=== PATIENT | female | born 1990 | race American Indian/Alaskan Native ===

== ENCOUNTER → 2020-03-17 09:15 | Outpatient (CLI) | payer OTHER, SELFPAY ==
--- NOTE | 2020-03-17 | DI.US.S_ITS ---
PROCEDURE: US OB <= 14 WEEKS FETUS INDICATIONS: VAGINAL BLEEDING OUTSIDE/PRIOR DATING DATA: Last menstrual period (LMP): 02/05/20 LMP-based estimated date of delivery (SOCO): 11/11/20. First dating scan (date and location): 03/26/20. Estimated date of delivery (SOCO) from first dating scan: 11/09/20. TECHNIQUE: Real-time scanning was performed of the fetus and maternal pelvic organs, with image documentation. Endovaginal scanning was also performed to better visualize the fetus and maternal ovaries. COMPARISON: None. FINDINGS: Embryo: [place]-rump length 4 mm correlates with a gestational age of 6 weeks 1 day, +/-5 days Measurement variability in dating: +/- 4 weeks by LMP, +/- 7 days by mean sac diameter (use before 6 weeks gestation if crown-rump length not able to be measured), +/- 5 days by crown-rump length (up to 8 weeks 6 days gestation), +/- 7 days by crown-rump length (up to 13 weeks 6 days gestation). Note is made of a small presumed adjacent perigestational subchorionic bleed measuring 1.3 x 2.4 x 1.7 cm. Maternal organs: Ovaries normal considering gestational status . Limited images through the kidneys demonstrate no hydronephrosis. IMPRESSION: Single living intrauterine gestation with delivery date projected to be centered on 11/09/20, +/-5 days. Small subchorionic immediately adjacent perigestational bleed. Follow-up anatomic survey is recommended at approximately 20 weeks gestation. Dictated by: Harsha Diaz M.D. on 03/17/2020 at 11:52 Approved by: Harsha Diaz M.D. on 03/17/2020 at 11:54
== END ==
PROVIDERS: PCP Internal Medicine; Referring Provider Internal Medicine; Visit Provider Internal Medicine
DX: O20.9 Hemorrhage in early pregnancy, unspecified (principal); Z3A.01 Less than 8 weeks gestation of pregnancy
CPT/HCPCS: 76801; 76830

== ENCOUNTER → 2020-03-31 08:59 | Outpatient (CLI) | payer OTHER, SELFPAY ==
--- NOTE | 2020-03-31 | DI.US.S_ITS ---
PROCEDURE: US OB <= 14 WEEKS FETUS INDICATIONS: FOLLOW-UP SUBCHORIONIC BLEED OUTSIDE/PRIOR DATING DATA: Last menstrual period (LMP): 02/05/2020 LMP-based estimated date of delivery (SOCO): 11/11/2020. First dating scan (date and location): 03/17/2020. Estimated date of delivery (SOCO) from first dating scan: 11/09/2020. TECHNIQUE: Real-time scanning was performed of the fetus and maternal pelvic organs, with image documentation. Endovaginal scanning was also performed to better visualize the fetus and maternal ovaries. COMPARISON: [facility], OB <= 14 WEEKS FETUS, 03/17/2020, 9:39. FINDINGS: Embryo: [place]-rump length measures 4 mm corresponding to 6 weeks 1 day. Heart rate measures 119 beats per minute. Perigestational sac hematoma measuring 2.2 x 2.5 x 1.2 cm. Measurement variability in dating: +/- 4 weeks by LMP, +/- 7 days by mean sac diameter (use before 6 weeks gestation if crown-rump length not able to be measured), +/- 5 days by crown-rump length (up to 8 weeks 6 days gestation), +/- 7 days by crown-rump length (up to 13 weeks 6 days gestation). Maternal organs: Ovaries within normal limits, with 2.1 cm right corpus luteal cyst . IMPRESSION: 8 week 0 day single living IUP and perigestational sac bleed site. Dictated by: German COX Interpreted: Toby Bradford MD on 03/31/2020 at 10:17 Approved by: Toby Bradford M.D. on 03/31/2020 at 10:42
== END ==
PROVIDERS: PCP Internal Medicine; Referring Provider Family Medicine; Visit Provider Family Medicine
DX: O46.91 Antepartum hemorrhage, unspecified, first trimester (principal); Z3A.08 8 weeks gestation of pregnancy
CPT/HCPCS: 76801; 76817

== ENCOUNTER → 2020-04-09 08:01 | Outpatient (CLI) | payer OTHER, SELFPAY ==
--- NOTE | 2020-04-09 | DI.US.S_ITS ---
PROCEDURE: OB <= 14 WEEKS FETUS INDICATIONS: VAGINAL BLEEDING, LESS THAN 14 WEEKS OUTSIDE/PRIOR DATING DATA: Last menstrual period (LMP): 02/05/2020. LMP-based estimated date of delivery (SOCO): 11/11/2020. First dating scan (date and location): 03/17/2020. Estimated date of delivery (SOCO) from first dating scan: 11/09/2020. TECHNIQUE: Real-time scanning was performed of the fetus and maternal pelvic organs, with image documentation. COMPARISON: [facility], OB <= 14 WEEKS FETUS, 03/31/2020, 9:37. FINDINGS: Embryo: Lynch living intrauterine . [place]-rump length measures 2.9 cm, 9 weeks 5 days gestational age. heart rate 171 BPM. Small perigestational hemorrhage measuring 5.6 x 5.4 x 1 cm, estimated volume of 16 cc. (Previously 2.5 x 2.2 x 1.2 cm, estimated volume of 3 cc). Measurement variability in dating: +/- 4 weeks by LMP, +/- 7 days by mean sac diameter (use before 6 weeks gestation if crown-rump length not able to be measured), +/- 5 days by crown-rump length (up to 8 weeks 6 days gestation), +/- 7 days by crown-rump length (up to 13 weeks 6 days gestation). Maternal organs: Ovaries are not well seen. IMPRESSION: 1. [place] living intrauterine at 9 weeks 5 days based on today's crown rump length. This is concordant with the prior ultrasound dating. heart rate 171 BPM. 2. Small perigestational hemorrhage which is mildly increased. Dictated by: Arash Ochoa M.D. on 04/09/2020 at 9:31 Approved by: Arash Ochoa M.D. on 04/09/2020 at 9:46
== END ==
PROVIDERS: PCP Internal Medicine; Referring Provider Family Medicine; Visit Provider Family Medicine
DX: O20.9 Hemorrhage in early pregnancy, unspecified (principal); Z3A.09 9 weeks gestation of pregnancy
CPT/HCPCS: 76801; 76817

== ENCOUNTER → 2020-04-24 10:51 | Outpatient (CLI) | payer OTHER, SELFPAY ==
--- NOTE | 2020-04-24 | DI.US.S_ITS ---
PROCEDURE: OB <= 14 WEEKS FETUS INDICATIONS: VAGINAL BLEEDING OUTSIDE/PRIOR DATING DATA: Last menstrual period (LMP): 02/05/2020. LMP-based estimated date of delivery (SOCO): 11/11/2020. First dating scan (date and location): 03/17/2020. Estimated date of delivery (SOCO) from first dating scan: 11/09/2020. TECHNIQUE: Real-time scanning was performed of the fetus and maternal pelvic organs, with image documentation. Endovaginal scanning was also performed to better visualize the fetus and maternal ovaries. COMPARISON: [facility], OB <= 14 WEEKS FETUS, 03/31/2020, 9:37. [facility] OB <= 14 WEEKS FETUS, 03/17/2020, 9:39. [facility] OB <= 14 WEEKS FETUS, 04/09/2020, 8:21. FINDINGS: Embryo: A single live intrauterine is seen. The measured heart rate is 165 beats per minute. The crown-rump length measures 5.8 cm, corresponding to an estimated gestational age of 12 weeks 2 days. It is too early for detailed anatomic assessment. By visual inspection, the amount of amniotic fluid is within normal limits. Along the left side, there is again seen a subchorionic/perigestational hemorrhage that now measures 4.8 x 7.1 x 5.4 cm, which previously measured 5.6 x 1 x 5.4 cm. Measurement variability in dating: +/- 4 weeks by LMP, +/- 7 days by mean sac diameter (use before 6 weeks gestation if crown-rump length not able to be measured), +/- 5 days by crown-rump length (up to 8 weeks 6 days gestation), +/- 7 days by crown-rump length (up to 13 weeks 6 days gestation). Maternal organs: Ovaries are within normal limits, with a presumed right ovarian corpus luteum seen that measures up to 1.8 cm. IMPRESSION: Subchorionic hemorrhage of is again seen, which overall measures slightly larger on the current study than on the prior dated 04/09/2020. A single live intrauterine is seen. Dictated by: Filiberto Nunn M.D. on 04/24/2020 at 12:47 Approved by: Filiberto Nunn M.D. on 04/24/2020 at 12:49
== END ==
PROVIDERS: PCP Internal Medicine; Referring Provider Family Medicine; Visit Provider Family Medicine
DX: O20.9 Hemorrhage in early pregnancy, unspecified (principal); Z3A.12 12 weeks gestation of pregnancy
CPT/HCPCS: 76801

== ENCOUNTER → 2020-06-17 07:45 | Outpatient (CLI) | payer OTHER, SELFPAY ==
--- NOTE | 2020-06-17 | DI.US.S_ITS ---
PROCEDURE: US OB >= 14 WEEKS FETUS INDICATIONS: 20 WEEK ANATOMICAL SURVEY OUTSIDE/PRIOR DATING DATA: Last menstrual period (LMP): 02/05/2020 LMP-based estimated date of delivery (SOCO): 11/11/2020 First dating scan (date and location): 03/17/2020 at [facility] Estimated date of delivery (SOCO) from first dating scan: 11/09/2020 TECHNIQUE: Real-time scanning was performed of the fetus, with image documentation and biometric measurements. Endovaginal scanning: Not performed. COMPARISON: [facility], , OB <= 14 WEEKS FETUS, 04/24/2020, 11:31. FINDINGS: General: A single living intrauterine gestation is present. Presentation: Vertex Placenta: Placental position is posterior, without previa. Amniotic fluid index: 11.7 cm, normal range is 5-24 cm. Largest pocket 3.9 cm. heart rate: 155 beats per minute. Maternal cervical canal: 4.0 cm long. Normal lower limit is 2.5 cm. Possible small nabothian cyst is seen in the upper cervix. biometrics: Biparietal diameter: 4.5 cm, 19 weeks 4 days Head circumference: 17.0 cm, 19 weeks 4 days Abdominal circumference: 15.5 cm, 20 weeks 5 days Femur length: 3.1 cm, 19 weeks 4 days Estimated gestational age from initial scan: 19 weeks 2 days. Composite gestational age from present scan: 19 weeks 6 days Estimated weight and percentile: 331 grams, 88th percentile Measurement variability for biometric dating: +/- 7 days from 14 weeks to 15 weeks 6 days gestation, +/- 10 days from 16 weeks to 21 weeks 6 days gestation, +/- 2 weeks from 22 weeks to 27 weeks 6 days gestation, +/- 3 weeks for 28 weeks gestation or later. weight reference: 4500 g or EFW >90/95% is considered macrosomia or large for gestational age. EFW <10% is small for gestational age. EFW 5% or less is considered intra-uterine growth restriction. Previously described perigestational bleed is no longer seen. A hypoechoic 1.4 x 1.0 x 0.9 cm lesion in the anterior uterus is most likely a subserosal/intramural uterine fibroid. Anatomic survey: Neuro: Ventricles are non-dilated at less than 10 mm. Cisterna magna is normal at 3-11 mm. Cerebellum is normal in size and morphology. Nuchal skin fold: Normal at less than 6 mm between 14-21 weeks gestational age. Face: Nose and lips, facial profile are normal. Spine: No evidence for spina bifida. Heart: 4-chambered heart is present, with normal ventricular outflow tracts. Diaphragm: Diaphragm is intact. Stomach: Left-sided stomach is present. Kidneys: No hydronephrosis. Normal is less than 5 mm in 2nd trimester, less than 7 mm in 3rd trimester. Cord: 3-vessel cord has orthotopic insertion. Bladder: Normal in size. Extremities: All 4 extremities identified. IMPRESSION: 1. Single live intrauterine with appropriate interval growth. heart rate 155 BPM. Estimated weight 331 grams at the 88th percentile. 2. Normal anatomic survey. 3. Small anterior intramural and subserosal uterine fibroid. Dictated by: Armand Rushing M.D. on 06/17/2020 at 10:40 Approved by: Armand Rushing M.D. on 06/17/2020 at 10:51
== END ==
PROVIDERS: PCP Internal Medicine; Referring Provider Family Medicine; Visit Provider Family Medicine
DX: Z36.89 Encounter for other specified antenatal screening (principal); O34.12 Maternal care for benign tumor of corpus uteri, second trimester; D25.1 Intramural leiomyoma of uterus; D25.2 Subserosal leiomyoma of uterus; Z3A.19 19 weeks gestation of pregnancy
CPT/HCPCS: 76811

== ENCOUNTER → 2020-10-14 12:29 | Outpatient (ROUT) | payer OTHER, SELFPAY ==
[2020-10-15 08:04] LABS: Strep Grp B PCR NEG for Grp B Strep
== END ==
PROVIDERS: PCP Internal Medicine; Visit Provider Family Medicine
DX: Z34.90 Encounter for supervision of normal pregnancy, unspecified, unspecified trimester (principal)
CPT/HCPCS: 87653

== ENCOUNTER 2020-11-09 08:01 | Outpatient (CLI) | payer OTHER, SELFPAY | END 2020-11-09 08:30 | disposition home or self-care (01) | LOC: OB 11-10 12:00 | PROVIDERS: PCP Internal Medicine; Referring Provider Internal Medicine; Visit Provider Internal Medicine | DX: Z34.90 Encounter for supervision of normal pregnancy, unspecified, unspecified trimester (principal); Z3A.39 39 weeks gestation of pregnancy | CPT/HCPCS: 59025; G0378; G0379 ==

== ENCOUNTER 2020-11-09 14:44 | Inpatient (IN) | payer OTHER, SELFPAY ==
[2020-11-09] MEDS: LACTATED RINGERS 1,000 ML 100 ML IV ×2 (15:40→19:30)
[2020-11-09 16:38] VITALS: BP 139/80
[2020-11-09 16:38] LABS: Add Manual Diff / Slide Review NO; Basophils Absolute Auto 0 /uL (0-100); Basophils Percent Auto 0.3 % (0-2); Eosinophils Absolute Auto 0 /uL (0-450); Hemoglobin 11.3 g/dL (12.0-16.0); Lymphocytes Absolute Auto 800 /uL (1100-4500); Lymphocytes Percent Auto 4.9 % (25-40); Mean Corpuscular HGB Conc 33.3 % (30-36); Mean Corpuscular Hemoglobin 31.2 PG (26-34); Mean Corpuscular Volume 93.5 fL (80-100); Monocytes Absolute Auto 600 /uL (0-900); Monocytes Percent Auto 3.8 % (3-14); Neutrophils Absolute Auto 14100 /uL (1500-7000); Platelet Count 215 X10^3/uL (150-400); Red Blood Cell Count 3.63 X10^6/uL (4.0-5.2); Red Cell Distribution Width 12.6 % (11.6-14.8); White Blood Cell Count 15.6 X10^3/uL (4.5-11.0)
[2020-11-09 17:23] LABS: COVID19 - ADMIT (NP swab/PCR) Negative (Negative)
--- NOTE | 2020-11-09 17:56 | PM.OBHP.1 ---
OB HPI Date/Time Date of admission: 11/09/20 Date Patient Seen: 11/09/20 Time Patient Seen: 17:56 History of Present Condition Chief complaint: MATERNITY : 1 Para: 0 Estimated Date of Delivery: 11/11/20 Estimated Gestational Age (weeks): 39 5/7 Narrative: Love Gonzalez is a 30 year old female with an uncomplicated who presented this morning after beginning contractions spontaneously at about 0 0 to 30. She presented at 8:00 a.m. approximately was checked was 1 cm she was sent home and has had increasing intense and contraction she came back around 1:00 a.m. in was 6 cm. She was admitted at that time. She is not sure if she is leaking but she had a bulging bag when checked initially and now does not have that. She has no other significant change or complaint. Feeling well. Baby has been moving well. Has had some bloody show History of Present care: good care Dating criteria: LMP confirmed by 1st trimester US Ultrasounds: normal mid trimester US Obstetrical complications: none Medical complications: none Preadmission Labs Blood type: A (+) positive HCT: 30 HCAB: negative PAP: Normal Cell-free DNA: Normal Urine: Normal 1 hr GTT: 86 3 hr GTT: 1 hr Prior (ies) History: None Evaluation Evaluation Baseline heart rate: 150 Contraction Frequency (minutes): 3 Uterine Contraction Intensity: Moderate Category of Tracing: Reactive Cervical dilation (cm): 7 station: 0 [facility] Social History Smoking Status: Never smoker Meds Home Medications and Allergies Home Medications Medication Instructions Recorded Confirmed Type acyclovir 400 mg tablet 400 mg PO DAILY 11/09/20 11/09/20 History Exam Vital Signs (past 8 hours): - 11/09/20 16:38 Blood Pressure 139/80 Narrative Exam Narrative: Alert female lying in bed no acute distress. Abdomen is gravid vertex extremities without cyanosis clubbing edema. Objective Labs Result Diagrams: 11/09/20 16:00 Labs: Laboratory Results - last 24 hr 11/09/20 11/09/20 11/09/20 16:00 16:00 16:30 WBC 15.6 H RBC 3.63 L Hgb 11.3 L Hct 34.0 L MCV 93.5 MCH 31.2 MCHC 33.3 RDW 12.6 Plt Count 215 Neut % (Auto) 91.0 H Lymph % (Auto) 4.9 L Drew % (Auto) 3.8 Eos % (Auto) 0.0 L Baso % (Auto) 0.3 Neut # (Auto) 45060 H Lymph # (Auto) 800 L Drew # (Auto) 600 Eos # (Auto) 0 Baso # (Auto) 0 SARS-CoV-2 (PCR) Negative Blood Type A Positive Antibody Screen Negative Assessment and Plan Assessment and Plan Assessment and Plan narrative: active labor. Contraction pattern is minimal with every 3rd contraction apparently stronger. She is making some change. Actively managing with nitrous. For pain control. 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 Otherwise things look great. Baby looks category 1 and doing well and we will follow.
--- NOTE | 2020-11-09 20:03 | PM.AN.REGBLK ---
Regional Block Pre-procedure Procedure: Continuous Lumbar Epidural for L&D Attending OB provider: Mesfin Carrizales PM/AMARILYS narrative: term labor, uncomplicated . ASA Class: II Labs: Hct 34.0 % (36-46) L 11/09/20 16:00 Plt Count 215 X10^3/uL (150-400) 11/09/20 16:00 Medications: Current Medications Generic Name Dose Route Start Last Admin Trade Name Freq PRN Reason Stop Dose Admin Carboprost Tromethamine 250 mcg 11/09/20 16:17 Carboprost 250 Mcg/Ml Ampul IM Q90M PRN Bleeding Lactated Ringer's 1,000 mls @ 100 mls/hr 11/09/20 16:30 11/09/20 19:30 Lactated Ringers IV 100 mls/hr CONT JADE Administration Oxytocin/Lactated Ringer's 30 unit in 500 mls @ 200 mls/hr 11/09/20 16:17 Oxytocin Premix IV CONT PRN Bleeding Protocol Tranexamic Acid 1,000 mg/ 100 mls @ 200 mls/hr 11/09/20 16:17 Sodium Chloride IV NOW PRN Bleeding Oxytocin/Lactated Ringer's 30 unit in 500 mls @ 1 mls/hr 11/09/20 18:55 Oxytocin Premix IV TITRATE JADE Protocol 1 MILLIUNIT/MIN Methylergonovine Maleate 0.2 mg 11/09/20 16:17 Methylergonovine 0.2 Mg Tablet PO Q6HR PRN Heavy Bleeding Methylergonovine Maleate 0.2 mg 11/09/20 16:17 Methylergonovine 0.2 Mg/Ml Vial IM NOW PRN Bleeding Misoprostol 800 mcg 11/09/20 16:17 Misoprostol 200 Mcg Tablet IL NOW PRN Bleeding Misoprostol 1,000 mcg 11/09/20 16:17 Misoprostol 200 Mcg Tablet IL NOW PRN Bleeding Misoprostol 400 mcg 11/09/20 16:17 Misoprostol 200 Mcg Tablet SL NOW PRN Bleeding Oxytocin 10 unit 11/09/20 16:17 Oxytocin 10 Unit/Ml Vial IM NOW PRN Bleeding Procedure Insertion date: 11/09/20 Insertion time: 19:44 Prep/Local: betadine x3 Interspace: L2-3 Patient position: sitting Needle: 18 gauge Mundo (CSE: 27g Pencan through [place], clear CSF, 1mL 0.25% bupivacaine) Loss of resistance with: saline RADHA at (cm): 4 Catheter placed at SKIN (cm): 9 Catheter in SPACE (cm): 5 Insertion: No CSF, No Blood, No Paresthesia with insertion, No Paresthesia with injection and No Test dose reaction Initial Medications TEST DOSE time: 19:46 TEST DOSE: 1.5% lidocaine with epinephrine 1:200k (mL): 3 BOLUS DOSE time: 19:56 BOLUS DOSE (mL): 3 BOLUS DOSE med: other (infusate) Infusion INFUSION: 0.125% bupivacaine and with fentanyl 2 mcg/mL Initial rate (mL/hr): 8 Post-procedure Anesthesia time START: 19:40 Anesthesia time END: 22:21 Post-procedure Anesthesia Assessment: Yes CV function: HR/BP stable, Yes Resp function: RR/sat/airway adequate, Yes Mental status appropriate and No Anesthesia complications
--- NOTE | 2020-11-09 22:43 | PM.OBPRVD ---
Labor & Delivery Delivery date: 11/09/20 Intrapartal Events: None Cervical ripening method: none Induction method: none Delivery augmentation: rupture of membranes Delivery monitor: external FHT Route of delivery: L&D Laceration Description: Perineal - 2nd Degree Delivery repair: vicryl Estimated blood loss (mL): 250 Anesthesia Type: Epidural Complications: none Narrative: mom presented at around 8 this morning. She was 1 cm and aleisha every 3-5 minutes. Was okay with going home. Returned approximately 4 hours later 6 cm. For stage was unremarkable. heart monitor was category 1. Just prior to the into for stage she was ruptured with AROM. At that point she went from 9 to complete. She had epidural placed at around 9 mm. Excellent results. Second-stage went well without any significant changes she did have some discolorations with pushing into the 70s and 80s in oxygen was placed intermittently but really only covered 2-3 pushes. The rest of the time it was unremarkable. With excellent reactivity. Mom delivered OA over small second-degree midline tear. small right periurethral tear. Child was delivered head and the anterior shoulder delivered she had no nuchal cord. Bold sections mouth and nose. Delivered up onto the abdomen. Child was crying immediately. No resuscitation. Cord was allowed to stop beating and cord was clamped and cut by dad. Cord bloods were obtained. Placenta delivered intact spontaneous 3 vessels. Repair was done with 3-0 Vicryl. No anesthesia was needed other than epidural. Mother and baby were in stable condition. EBL 250 cc. Plan for aftercare: Routine care
[2020-11-10] MEDS: ACETAMINOPHEN 325 MG TABLET 650 MG PO ×3 (01:51→15:14)
[2020-11-10] MEDS: IBUPROFEN 600 MG TABLET PO ×3 (01:52→15:13)
[2020-11-10 07:01] LABS: Hematocrit 28.4 % (36-46); Hemoglobin 9.6 g/dL (12.0-16.0)
[2020-11-10 08:49] VITALS: TEMP 37
[2020-11-10 08:51] VITALS: TEMP 37
[2020-11-10] MEDS: ACYCLOVIR 400 MG TABLET PO (08:54)
[2020-11-10 15:13] VITALS: TEMP 36.8
[2020-11-10 15:14] VITALS: TEMP 36.8
--- NOTE | 2020-11-10 18:16 | P.DS_ITS ---
Discharge Providers Provider Date of admission: 11/09/20 14:44 Discharge Date: 11/10/20 Primary care physician: YING Arrington Consults: 11/10/20 22:41 Consult to [employer] Demonstrator Routine Comment: Discharge provider: Mesfin Carrizales MD Summary Hospital Course Date Patient Seen: 11/10/20 Time Patient Seen: 18:17 Diagnoses: term intrauterine delivered Hospital Course: patient was presented for with spontaneous onset of contraction please see delivery note. She recovered well. Had no major issues. Pain was well controlled bleeding was minimal. Breast-feeding seemed to be going well consult saw her today. No other changes. Requesting go Peripartum Data Delivery Method: Natural Vaginal Laceration Description: Vaginal - 2nd Degree Procedures: Status at Discharge Cognitive/behavioral status at discharge: oriented Functional status at discharge: independent ambulation Overall status at discharge: patient is progressing back to baseline Time Spent with Patient Time attestation: Total time spent providing and/or coordinating discharge services: Objective Labs Result Diagrams: 11/10/20 06:45 Labs: Laboratory Results - last 24 hr 11/10/20 06:45 Hgb 9.6 L Hct 28.4 L Exam Vital Signs (past 8 hours): - 11/10/20 15:13 11/10/20 15:14 Temperature 98.3 F 98.3 F Narrative Exam Narrative: alert female in no acute distress abdomen is soft positive bowel sounds nontender. Uterus is firm. Extremities normal. Discharge Plan Discharge Plan Patient Disposition: Home Discharge orders & Medications Prescriptions: Continued acyclovir 400 mg tablet 400 mg PO DAILY RF: 0 Medication counseling provided by Pharmacist: No Follow up/Referrals: Kristin Carrizales ARNP [Primary Care Provider] - Mesfin Carrizales MD [Physician] - 6 Weeks Discharge Health Status Multidrug resistant organism: No MDRO Diet/Activity/Treatments Diet: Diet as Tolerated Activity: as tolerated Skin/Wound/Dressing Care Report to your healthcare provider any signs of infection, such as:: chills, fever and increased pain Discharge Data Primary Care Provider: Kristin Carrizales
[2020-11-10 18:30] VITALS: BP 131/74; PULSE 73; RESP 16; TEMP 36.7
== END 2020-11-10 20:30 | disposition home or self-care (01) | DRG 807 ==
PROVIDERS: Admitting Provider Family Medicine; PCP Internal Medicine; Referring Provider Family Medicine; Visit Provider Family Medicine
DX: O70.1 Second degree perineal laceration during delivery (principal); Z37.0 Single live birth; Z3A.39 39 weeks gestation of pregnancy
CPT/HCPCS: 01967; 36415; 59025; 59050; 85014; 85018; 85025; 86850; 86900; 86901; 87635; C9803; G0378; G0379